=== PATIENT | male | born 1995 | race Caucasian/White ===

== ENCOUNTER 2017-01-28 14:01 | Emergency (ER) | payer OTHER ==
[2017-01-28 14:39] VITALS: BP 134/56
--- NOTE | 2017-01-28 15:31 | UC ---
Throat Pain/Nasal Juancarlos HPI - HPI Summary HPI Summary: COUGH , CHEST CONGESTION X 2 DAYS + FEVER, CHILLS, NASAL CONGESTION, SORE THROAT - History of Current Complaint Chief Complaint: UCGeneralIllness Stated Complaint: COUGH,TIGHT CHEST,FEVER Time Seen by Provider: 01/28/17 15:26 Hx Obtained From: Patient Onset/Duration: Gradual Onset, Lasting Days - 2, Still Present Severity: Moderate Cough: Nonproductive Associated Signs & Symptoms: Positive: Nasal Discharge, Fever. Negative: Drooling, Wheezing, Hoarseness, Sinus Discomfort, Rash - Allergies/Home Medications Allergies/Adverse Reactions: Allergies Allergy/AdvReac Type Severity Reaction Status Date / Time No Known Allergies Allergy Verified 01/28/17 14:39 Home Medications: Home Medications Ibuprofen TAB* [Advil TAB*] 200 mg PO Q8H PRN 01/28/17 [History Confirmed ] PMH/Surg Hx/FS Hx/Imm Hx Endocrine History Of: Denies: Diabetes Cardiovascular History Of: Denies: Hypertension, Pacemaker/ICD - Surgical History Surgical History: None - Family History Known Family History: Negative: Diabetes - Social History Alcohol Use: Occasionally Substance Use Type: None Smoking Status (MU): Never Smoked Tobacco Review of Systems Constitutional: Fever, Chills, Fatigue Skin: Negative Eyes: Negative ENT: Nasal Discharge Respiratory: Cough Cardiovascular: Negative All Other Systems Reviewed And Are Negative: Yes Physical Exam Triage Information Reviewed: Yes Appearance: Well-Appearing, No Pain Distress, Well-Nourished Vital Signs: Initial Vital Signs Temp 98.3 F 01/28/17 14:35 Pulse 80 01/28/17 14:35 Resp 17 01/28/17 14:35 BP 134/56 01/28/17 14:35 Pulse Ox 100 01/28/17 14:35 Vital Signs Reviewed: Yes Eyes: Positive: Conjunctiva Clear ENT Exam: Normal ENT: Positive: Normal ENT inspection, Hearing grossly normal, Pharyngeal erythema, Nasal congestion, Nasal drainage, TMs normal Neck: Positive: Supple, Nontender, No Lymphadenopathy Respiratory Exam: Normal Respiratory: Positive: Chest non-tender, Lungs clear, Normal breath sounds Cardiovascular: Positive: RRR, No Murmur, Pulses Normal Abdominal Exam: Normal Skin Exam: Normal Throat Pain/Nasal Course/Dx - Differential Dx/Diagnosis Provider Diagnoses: VIRAL BRONCHITIS Discharge - Discharge Plan Condition: Stable Disposition: HOME Patient Education Materials: Acute Bronchitis (ED) Referrals: Non Staff,Doctor [Primary Care Provider] - If Needed Additional Instructions: VIRAL BRONCHITIS , NO NEED FOR ANTIBIOTICS FOLLOW UP NEEDED
== END 2017-01-28 15:42 | disposition home or self-care (01) ==
LOC: UCCORT 14:01
DX: J20.8 Acute bronchitis due to other specified organisms (principal)
CPT/HCPCS: 99212; G0463

== ENCOUNTER 2018-01-30 13:19 | Emergency (ER) | payer OTHER ==
[2018-01-30 14:22] VITALS: BP 120/68
[2018-01-30] MEDS ORDERED: Ibuprofen TAB* 600 MG PO ONE (15:07)
--- NOTE | 2018-01-30 15:19 | UC ---
Head Injury HPI - HPI Summary HPI Summary: 22 yo male was playing [employer] yesterday evening Jumped to make a catch and his legs where swept hit occiput No LOC felt good enough to finish game Today woke up with 5-6 DIAZ disequilibrium some mild photo/phonophobia slight nausea trouble concentrating/focusing in classs today no hx concussion Hx of cord contusion 3 yrs ago which resulted in 3 day hospitalization - History Of Current Complaint Chief Complaint: UCHeadInjury Stated Complaint: HEADACHE D/T INJURY Time Seen by Provider: 01/30/18 14:54 Hx Obtained From: Patient Onset/Duration: Gradual Onset, Lasting Hours Severity Currently: Moderate Severity Initially: Moderate Pain Intensity: 5 Pain Scale Used: 0-10 Numeric Character: Throbbing - frontal DIAZ Aggravating Factor(s): Nothing Alleviating Factor(s): Nothing Associated Signs And Symptoms: Positive: Nausea - mild. Negative: LOC (Time In Secs./Mins/Hrs), LOC Duration Unknown, Confusion, Memory Loss, Seizure, Epistaxis, Dental Malocclusion, Neck Pain, Vomiting - Allergies/Home Medications Allergies/Adverse Reactions: Allergies Allergy/AdvReac Type Severity Reaction Status Date / Time No Known Allergies Allergy Verified 01/30/18 14:17 Home Medications: Home Medications DULoxetine CAP* [Cymbalta CAP*] 60 mg PO DAILY 01/30/18 [History Confirmed ] PMH/Surg Hx/FS Hx/Imm Hx Previously Healthy: Yes - Surgical History Surgical History: None - Family History Known Family History: Positive: Hypertension Negative: Diabetes - Social History Alcohol Use: Occasionally Substance Use Type: None Smoking Status (MU): Never Smoked Tobacco Household Exposure Type: Cigarettes Review of Systems Constitutional: Negative Skin: Negative Eyes: Photophobia ENT: Negative Respiratory: Negative Cardiovascular: Negative Gastrointestinal: Nausea Genitourinary: Negative Motor: Negative Neurovascular: Negative Musculoskeletal: Negative Neurological: Headache Psychological: Negative Is Patient Immunocompromised?: No All Other Systems Reviewed And Are Negative: Yes Physical Exam Triage Information Reviewed: Yes Appearance: Well-Appearing, No Pain Distress, Well-Nourished Vital Signs: Initial Vital Signs Temp 98.5 F 01/30/18 14:17 Pulse 60 01/30/18 14:17 Resp 18 01/30/18 14:17 BP 120/68 04/17/18 14:17 Pulse Ox 100 01/30/18 14:17 Vital Signs Reviewed: Yes Eyes: Positive: Conjunctiva Clear, Other: - EOMI/PERRL, FUNDI : BENIGN ENT: Positive: Hearing grossly normal, TMs normal, Uvula midline. Negative: Pharynx normal, Pharyngeal erythema, Nasal congestion, Nasal drainage, TM bulging, TM dull, TM red, Tonsillar swelling, Tonsillar exudate, Trismus, Muffled voice, Hoarse voice, Dental tenderness, Sinus tenderness Neck: Positive: Supple, Nontender, No Lymphadenopathy Respiratory: Positive: Lungs clear, Normal breath sounds, No respiratory distress, No accessory muscle use Cardiovascular: Positive: RRR, No Murmur Musculoskeletal: Positive: ROM Intact, No Edema Neurological: Positive: Alert, Muscle Tone Normal, Other: - CN 2-12 intact/ strenght 5/5, DTRs brisk and symmtrical, (-) Rhomberg, GCS 15/15. Negative: Lethargic Psychological Exam: Normal Skin Exam: Normal Head Injury Course/Dx - Differential Dx/Diagnosis Provider Diagnoses: concussion Discharge - Sign-Out/Discharge Documenting (check all that apply): Discharge - Discharge Plan Condition: Stable Disposition: HOME Patient Education Materials: Concussion (ED) Forms: *School Release, *Gen. Provider Communication Referrals: [facility] [Outside] - As Soon As Possible Additional Instructions: rest (both physical and mental) tylenol or advil for pain recheck for new or worsening symptoms - Billing Disposition and Condition Condition: STABLE Disposition: HOME
== END 2018-01-30 15:15 | disposition home or self-care (01) ==
LOC: UCCORT 13:19
DX: S06.0X9A Concussion with loss of consciousness of unspecified duration, initial encounter (principal); Z87.828 Personal history of other (healed) physical injury and trauma; W22.8XXA Striking against or struck by other objects, initial encounter; Y93.62 Activity, american flag or touch football; Y92.9 Unspecified place or not applicable
CPT/HCPCS: 99212; A9270-GY; G0463